=== PATIENT | female | born 1970 | race Caucasian/White ===

== ENCOUNTER 2020-10-10 16:38 | Emergency (ER) | payer SELFPAY ==
[~2020-10-10] VITALS: Ht 162.6 cm; Wt 79.4 kg
[2020-10-10] MEDS ORDERED: ACETAMINOPHEN500 MG PO (16:54)
[2020-10-10] MEDS ORDERED: IBUPROFEN IB200 MG PO (16:54)
[2020-10-10] MEDS ORDERED: ACETAMINOPHEN 325 MG TAB PO ONE (17:00)
[2020-10-10] MEDS ORDERED: ACETAMINOPHEN 325 MG TAB ONE (17:06)
== END 2020-10-10 17:41 | disposition home or self-care (01) ==
LOC: FSED 16:46
DX: M25.561 Pain in right knee (principal); S83.91XA Sprain of unspecified site of right knee, initial encounter; Y93.01 Activity, walking, marching and hiking
CPT/HCPCS: 99284